=== PATIENT | female | born 1975 | race Native Hawaiian/Other Pacific Islander ===

== ENCOUNTER 2016-07-17 12:23 | Emergency (ER) | payer BC ==
[~2016-07-17] VITALS: Ht 154.9 cm; Wt 70.8 kg
[~2016-07-17 12:23] MED LIST: FLUO20CA6 PO; SERT100T PO
[2016-07-17 13:31] LABS: PLATELET COUNT 279 K/uL (152-353); POTASSIUM 3.7 mmol/L (3.6-5.2); SODIUM 140 mmol/L (136-145)
[2016-07-17 15:10] VITALS: BP 122/90; TEMP 97.8
== END 2016-07-17 15:10 | disposition home or self-care (01) ==
LOC: ED 12:23
DX: R07.89 Other chest pain (principal)
CPT/HCPCS: 36415; 80053; 81000; 82550; 84484; 85027; 85610; 86318; 93005; 99283

== ENCOUNTER 2018-01-06 07:59 | Outpatient (CLI) | payer BC | END 2018-01-06 20:55 | disposition home or self-care (01) | LOC: MAMMO 07:59 | DX: Z12.31 Encounter for screening mammogram for malignant neoplasm of breast (principal) ==